=== PATIENT | female | born 1965 | race African-American/Black ===

== ENCOUNTER 2017-01-24 14:00 | Observation (INO) | payer OTHER ==
[~2017-01-24] VITALS: Ht 162.6 cm; Wt 55.7 kg
[2017-01-24 15:10] LABS: EOSINOPHIL (%) 4.1 % (0-5); EOSINOPHIL COUNT 0.2 K/uL (0-0.3); HEMATOCRIT 38.5 % (36.0-46.0); IMMATURE GRANULOCYTE (%) 0.2 % (0.0-0.7); INSTRUMENT ABS NEUTROPHIL CT 2.7 K/uL; MCH 31.8 PG (29.0-34.0); MCHC 33.2 G/DL (30.0-36.0); MCV 95.5 FL (83-99); MEAN PLAT.VOLUME 8.4 uM^3 (9.5-12.4); MONOCYTE COUNT 0.5 K/uL (0-0.8); NEUTROPHIL (%) 61.2 % (45-76); NEUTROPHIL COUNT 2.7 K/uL (1.8-6.4); PLATELET COUNT 207 K/uL (156-360); RBC DIS.WIDTH-CV 12.2 % (11.8-14.6); RBC DIS.WIDTH-SD 43.4 % (39-53); RED BLOOD COUNT 4.03 M/uL (3.80-5.20); WHITE BLOOD COUNT 4.4 K/uL (4.1-10.2)
[2017-01-24 15:17] LABS: CHLORIDE 103 mEq/L (99-109); POTASSIUM 4.4 mEq/L (3.7-5.4); SODIUM 139 mEq/L (136-147)
[2017-01-24 15:18] LABS: MAGNESIUM 2.1 mg/dL (1.3-2.7)
[2017-01-24 15:19] LABS: GLUCOSE 173 mg/dL (70-99)
[2017-01-24 15:20] LABS: ANION GAP 8 MEQ/L (2-14)
[2017-01-24 15:21] LABS: TOTAL BILIRUBIN 0.2 mg/dL (0.0-1.0)
[2017-01-24 15:23] LABS: ALKALINE PHOSPHATASE 65 IU/L (3-129); GFR ESTIMATE (CALCULATED) > 59 mL/min/
[2017-01-24 15:24] LABS: UREA NITROGEN (BUN) 10 mg/dL (9-23)
[2017-01-24] MEDS ORDERED: FLOVENT 22120 INHALA IH (20:10)
[2017-01-24] MEDS ORDERED: LEVOCETIRIZINE D5 MG PO (20:11)
[2017-01-24] MEDS ORDERED: CYCLOBENZAPRINE10 MG PO (20:11)
[2017-01-24] MEDS ORDERED: SINGULAIR10 MG PO (20:11)
[2017-01-24] MEDS ORDERED: PAROXETINE HCL20 MG PO (20:12)
[2017-01-24] MEDS ORDERED: ZIPRASIDONE HCL40 MG PO (20:12)
[2017-01-24] MEDS ORDERED: KEPPRA1000 MG PO (20:13)
[2017-01-24] MEDS ORDERED: CARBATROL-ER300 MG PO (20:13)
[2017-01-24] MEDS ORDERED: DIVALPROEX SOD500 MG PO ×3 (20:14→20:15)
[2017-01-24] MEDS ORDERED: CENTRUM SILVER1 EAC3 PO (20:15)
[2017-01-24 21:01] VITALS: BP 156/100
[2017-01-25 00:16] VITALS: BP 147/84
[2017-01-25 03:20] VITALS: BP 148/72
[2017-01-25 05:00] VITALS: BP 148/72
[2017-01-25 07:01] LABS: HEMATOCRIT 35.4 % (36.0-46.0); MCH 31.3 PG (29.0-34.0); MCHC 32.5 G/DL (30.0-36.0); MCV 96.5 FL (83-99); MEAN PLAT.VOLUME 8.9 uM^3 (9.5-12.4); PLATELET COUNT 188 K/uL (156-360); RBC DIS.WIDTH-CV 12.4 % (11.8-14.6); RBC DIS.WIDTH-SD 44.1 % (39-53); RED BLOOD COUNT 3.67 M/uL (3.80-5.20); WHITE BLOOD COUNT 4.2 K/uL (4.1-10.2)
[2017-01-25 07:24] LABS: ANION GAP 7 MEQ/L (2-14); CHLORIDE 106 MEQ/L (99-109); GFR ESTIMATE (CALCULATED) > 59 mL/min/; SAMPLE HEMOLYSIS CHECK 1; SAMPLE ICTERIC CHECK 0; SAMPLE LIPEMIA CHECK 0; SODIUM 140 MEQ/L (136-147); UREA NITROGEN (BUN) 7 mg/dL (9-23)
[2017-01-25 07:26] LABS: GLUCOSE 77 mg/dL (70-99); POTASSIUM 3.9 MEQ/L (3.7-5.4)
[2017-01-25 07:29] VITALS: BP 119/78
[2017-01-25 10:20] LABS: ADD MIUA? NO; BILIRUBIN NEGATIVE; BLOOD NEGATIVE; COLOR YELLOW ((YELLOW)); GLUCOSE (STRIP) NEGATIVE; KETONES NEGATIVE; LEUKOCYTES NEGATIVE; NITRITE NEGATIVE; PROTEIN (STRIP) NEGATIVE; SPECIFIC GRAVITY 1.009 (1.000-1.030); UROBILINOGEN 0.2 MG/DL (0.2-1.0)
[2017-01-25 10:59] VITALS: BP 146/91
[2017-01-25] MEDS ORDERED: KEPPRA1000 MG PO (11:27)
== END 2017-01-25 15:44 | disposition home or self-care (01) ==
LOC: EME 14:00 → EDOF 19:15 → 5WEST 19:15 → EDOF 19:15 → 5WEST 20:44
PROVIDERS: Emergency Medicine; Hospitalist
DX: G40.909 Epilepsy, unspecified, not intractable, without status epilepticus (principal); I10 Essential (primary) hypertension; J45.909 Unspecified asthma, uncomplicated; F70 Mild intellectual disabilities; Z91.19 Patient's noncompliance with other medical treatment and regimen
CPT/HCPCS: 70450; 71020; 80048; 80053; 80156; 80164; 81003; 83735; 85025; 85027; 93005; 94640; 99281; 99285; G0378; J1644; J7030

== ENCOUNTER 2017-04-30 16:13 | Emergency (ER) | payer OTHER ==
[~2017-04-30] VITALS: Ht 162.6 cm; Wt 57.4 kg
[~2017-04-30 16:13] MED LIST: CARBATROL-ER300 MG PO; CENTRUM SILVER1 EAC3 PO; CYCLOBENZAPRINE10 MG PO; DIVALPROEX SOD500 MG PO; FLOVENT 22120 INHALA IH; KEPPRA1000 MG PO; LEVOCETIRIZINE D5 MG PO; PAROXETINE HCL20 MG PO; SINGULAIR10 MG PO; ZIPRASIDONE HCL40 MG PO
[2017-04-30 16:43] LABS: ADD MIUA? NO; BILIRUBIN NEGATIVE; BLOOD NEGATIVE; COLOR YELLOW ((YELLOW)); GLUCOSE (STRIP) NEGATIVE; KETONES NEGATIVE; LEUKOCYTES NEGATIVE; NITRITE NEGATIVE; PROTEIN (STRIP) NEGATIVE; SPECIFIC GRAVITY 1.014 (1.000-1.030); UCUL ADDED? NO
[2017-04-30 17:07] LABS: HEMATOCRIT 39.1 % (36.0-46.0); MCHC 33.5 G/DL (30.0-36.0); MCV 95.4 FL (83-99); MEAN PLAT.VOLUME 8.8 uM^3 (9.5-12.4); PLATELET COUNT 229 K/uL (156-360); RBC DIS.WIDTH-CV 12.1 % (11.8-14.6); RBC DIS.WIDTH-SD 42.4 % (39-53); WHITE BLOOD COUNT 4.4 K/uL (4.1-10.2)
[2017-04-30 17:20] LABS: CHLORIDE 102 mEq/L (99-109)
[2017-04-30 17:21] LABS: POTASSIUM 3.6 mEq/L (3.7-5.4); SODIUM 139 mEq/L (136-147)
[2017-04-30 17:23] LABS: GLUCOSE 116 mg/dL (70-99)
[2017-04-30 17:24] LABS: ANION GAP 9 MEQ/L (2-14)
[2017-04-30 17:25] LABS: TOTAL BILIRUBIN 0.2 mg/dL (0.0-1.0)
[2017-04-30 17:26] LABS: ALKALINE PHOSPHATASE 66 IU/L (3-129)
[2017-04-30 17:27] LABS: GFR ESTIMATE (CALCULATED) > 59 mL/min/
[2017-04-30 17:28] LABS: UREA NITROGEN (BUN) 14 mg/dL (9-23)
[2017-04-30 18:37] LABS: SAMPLE HEMOLYSIS CHECK 0; SAMPLE ICTERIC CHECK 0; SAMPLE LIPEMIA CHECK 0
[2017-04-30 19:00] VITALS: BP 155/98
== END 2017-04-30 19:01 | disposition home or self-care (01) ==
LOC: EME 16:13
PROVIDERS: Emergency Medicine
DX: G40.909 Epilepsy, unspecified, not intractable, without status epilepticus (principal); J45.909 Unspecified asthma, uncomplicated
CPT/HCPCS: 80053; 80156; 80164; 81003; 85027; 99281; 99284; J1953; J7030; J7050

== ENCOUNTER 2017-09-19 13:41 | Emergency (ER) | payer OTHER ==
[~2017-09-19] VITALS: Ht 162.6 cm; Wt 59.6 kg
[2017-09-19 16:05] LABS: EOSINOPHIL (%) 3.8 % (0-5); EOSINOPHIL COUNT 0.2 K/uL (0-0.3); HEMATOCRIT 36.9 % (36.0-46.0); IMMATURE GRANULOCYTE (%) 0.2 % (0.0-0.7); INSTRUMENT ABS NEUTROPHIL CT 2.5 K/uL; LYMPHOCYTE COUNT 1.4 K/uL (1.0-2.8); MCH 31.9 PG (29.0-34.0); MCHC 33.1 G/DL (30.0-36.0); MCV 96.6 FL (83-99); MEAN PLAT.VOLUME 8.3 uM^3 (9.5-12.4); MONOCYTE (%) 8.2 % (3-12); MONOCYTE COUNT 0.4 K/uL (0-0.8); NEUTROPHIL (%) 56.4 % (45-76); NEUTROPHIL COUNT 2.5 K/uL (1.8-6.4); PLATELET COUNT 224 K/uL (156-360); RBC DIS.WIDTH-CV 12.3 % (11.8-14.6); RBC DIS.WIDTH-SD 43.8 % (39-53); RED BLOOD COUNT 3.82 M/uL (3.80-5.20); WHITE BLOOD COUNT 4.5 K/uL (4.1-10.2)
[2017-09-19 16:30] LABS: ALKALINE PHOSPHATASE 61 IU/L (3-129); ANION GAP 8 MEQ/L (2-14); CHLORIDE 103 MEQ/L (99-109); GFR ESTIMATE (CALCULATED) > 59 mL/min/; GLUCOSE 115 mg/dL (70-99); POTASSIUM 3.7 MEQ/L (3.7-5.4); SAMPLE HEMOLYSIS CHECK 0; SAMPLE ICTERIC CHECK 0; SAMPLE LIPEMIA CHECK 0; SODIUM 139 MEQ/L (136-147); TOTAL BILIRUBIN 0.3 MG/DL (0.0-1.0); UREA NITROGEN (BUN) 10 mg/dL (9-23)
[2017-09-19 18:48] VITALS: BP 149/93
== END 2017-09-19 18:55 | disposition home or self-care (01) ==
LOC: EME 13:41
PROVIDERS: Emergency Medicine
DX: G40.409 Other generalized epilepsy and epileptic syndromes, not intractable, without status epilepticus (principal); J45.909 Unspecified asthma, uncomplicated; F79 Unspecified intellectual disabilities; F32.9 Major depressive disorder, single episode, unspecified; Z87.820 Personal history of traumatic brain injury; Z88.8 Allergy status to other drugs, medicaments and biological substances
CPT/HCPCS: 80053; 80156; 80164; 85025; 99281; 99285

== ENCOUNTER 2017-12-03 16:14 | Emergency (ER) | payer OTHER ==
[~2017-12-03] VITALS: Ht 162.6 cm; Wt 59.2 kg
[2017-12-03 16:33] LABS: HEMATOCRIT 36.9 % (36.0-46.0); HEMOGLOBIN 12.7 G/DL (11.9-15.5); MCHC 34.4 G/DL (30.0-36.0); MCV 92.9 FL (83-99); PLATELET COUNT 205 K/uL (156-360); RBC DIS.WIDTH-CV 11.9 % (11.8-14.6); RBC DIS.WIDTH-SD 41.1 % (39-53); RED BLOOD COUNT 3.97 M/uL (3.80-5.20)
[2017-12-03 16:41] LABS: CHLORIDE 100 mEq/L (99-109); POTASSIUM 3.6 mEq/L (3.7-5.4); SODIUM 135 mEq/L (136-147)
[2017-12-03 16:42] LABS: GLUCOSE 144 mg/dL (70-99)
[2017-12-03 16:46] LABS: CREATININE 0.9 mg/dL (0.6-1.3); GFR ESTIMATE (CALCULATED) > 59 mL/min/
[2017-12-03 16:47] LABS: UREA NITROGEN (BUN) 19 mg/dL (9-23)
[2017-12-03 16:53] LABS: TROP-I INTERPRETATION NEGATIVE; TROPONIN-I < 0.01 ng/mL (0.0-0.30)
[2017-12-03 18:04] VITALS: BP 160/101
== END 2017-12-03 18:11 | disposition home or self-care (01) ==
LOC: EME 16:14
PROVIDERS: Emergency Medicine
DX: Z71.1 Person with feared health complaint in whom no diagnosis is made (principal); F32.9 Major depressive disorder, single episode, unspecified; J45.909 Unspecified asthma, uncomplicated; Z88.8 Allergy status to other drugs, medicaments and biological substances
CPT/HCPCS: 80048; 84484; 85027; 93005; 99281; 99284

== ENCOUNTER 2017-12-04 10:56 | Emergency (ER) | payer OTHER ==
[~2017-12-04] VITALS: Ht 162.6 cm; Wt 56.9 kg
[2017-12-04 14:18] VITALS: BP 145/87
== END 2017-12-04 14:22 | disposition home or self-care (01) ==
LOC: EME 10:56
DX: I10 Essential (primary) hypertension (principal); R73.9 Hyperglycemia, unspecified; J45.909 Unspecified asthma, uncomplicated
CPT/HCPCS: 82948; 99281; 99284

== ENCOUNTER 2018-02-03 14:26 | Emergency (ER) | payer OTHER ==
[~2018-02-03] VITALS: Ht 162.6 cm; Wt 59.3 kg
[2018-02-03 15:29] LABS: APPEARANCE CLEAR ((CLEAR)); BILIRUBIN NEGATIVE; BLOOD MODERATE; COLOR STRAW ((YELLOW)); GLUCOSE (STRIP) NEGATIVE; KETONES NEGATIVE; LEUKOCYTES NEGATIVE; NITRITE NEGATIVE; PROTEIN (STRIP) NEGATIVE; UROBILINOGEN 0.2 MG/DL (0.2-1.0)
[2018-02-03 15:34] LABS: BACTERIA NONE SEEN /HPF; EPITHELIAL CELLS RARE /HPF; MUCUS NONE SEEN /LPF; RED BLOOD CELLS 0-5 /HPF (0-5); UCUL ADDED? NO; WHITE BLOOD CELLS 0-5 /HPF (0-5)
[2018-02-03 15:44] LABS: HEMATOCRIT 39.6 % (36.0-46.0); HEMOGLOBIN 13.8 G/DL (11.9-15.5); MCH 31.9 PG (29.0-34.0); MCHC 34.8 G/DL (30.0-36.0); PLATELET COUNT 187 K/uL (156-360); RBC DIS.WIDTH-CV 11.9 % (11.8-14.6); RBC DIS.WIDTH-SD 40.4 % (39-53); RED BLOOD COUNT 4.32 M/uL (3.80-5.20); WHITE BLOOD COUNT 4.9 K/uL (4.1-10.2)
[2018-02-03 15:47] LABS: MCV 91.7 FL (83-99)
[2018-02-03 15:53] LABS: CHLORIDE 100 mEq/L (99-109); POTASSIUM 3.9 mEq/L (3.7-5.4); SODIUM 138 mEq/L (136-147)
[2018-02-03 15:55] LABS: GLUCOSE 98 mg/dL (70-99)
[2018-02-03 15:59] LABS: CREATININE 0.8 mg/dL (0.6-1.3); GFR ESTIMATE (CALCULATED) > 59 mL/min/
[2018-02-03 16:00] LABS: UREA NITROGEN (BUN) 8 mg/dL (9-23)
[2018-02-03 16:21] LABS: CARBAMAZEPINE (TEGRETOL) 9.7 MCG/ML (4.0-12.0); VALPROIC ACID (DEPAKOTE) 135.9 MCG/ML (50-100)
[2018-02-03 17:51] VITALS: BP 145/93
[2018-02-04] MEDS ORDERED: KLONOPIN0.5 M1 PO (14:21)
== END 2018-02-03 17:55 | disposition home or self-care (01) ==
LOC: EME 14:26
DX: R53.83 Other fatigue (principal); R53.81 Other malaise; R42 Dizziness and giddiness; R56.9 Unspecified convulsions; J45.909 Unspecified asthma, uncomplicated; F32.9 Major depressive disorder, single episode, unspecified; F79 Unspecified intellectual disabilities; Z79.51 Long term (current) use of inhaled steroids; Z87.820 Personal history of traumatic brain injury
CPT/HCPCS: 70450; 71046; 80048; 80156; 80164; 81003; 85027; 99281; 99284

== ENCOUNTER 2018-02-04 11:39 | Emergency (ER) | payer OTHER ==
[~2018-02-04] VITALS: Ht 162.6 cm; Wt 61.4 kg
[2018-02-04 12:09] LABS: BASOPHIL (%) 0.7 % (0-1); EOSINOPHIL (%) 3.7 % (0-5); EOSINOPHIL COUNT 0.2 K/uL (0-0.3); HEMATOCRIT 38.6 % (36.0-46.0); HEMOGLOBIN 13.4 G/DL (11.9-15.5); IMMATURE GRANULOCYTE (%) 0.2 % (0.0-0.7); LYMPHOCYTE (%) 31.3 % (15-42); LYMPHOCYTE COUNT 1.3 K/uL (1.0-2.8); MCH 31.9 PG (29.0-34.0); MCHC 34.7 G/DL (30.0-36.0); MCV 91.9 FL (83-99); MONOCYTE (%) 8.1 % (3-12); MONOCYTE COUNT 0.3 K/uL (0-0.8); NEUTROPHIL COUNT 2.3 K/uL (1.8-6.4); PLATELET COUNT 173 K/uL (156-360); RBC DIS.WIDTH-SD 40.8 % (39-53); WHITE BLOOD COUNT 4.1 K/uL (4.1-10.2)
[2018-02-04 12:22] LABS: CHLORIDE 101 mEq/L (99-109); SODIUM 141 mEq/L (136-147)
[2018-02-04 12:23] LABS: GLUCOSE 96 mg/dL (70-99)
[2018-02-04 12:27] LABS: CREATININE 0.7 mg/dL (0.6-1.3); GFR ESTIMATE (CALCULATED) > 59 mL/min/
[2018-02-04 12:28] LABS: UREA NITROGEN (BUN) 9 mg/dL (9-23)
[2018-02-04 13:06] LABS: VALPROIC ACID (DEPAKOTE) 97.2 MCG/ML (50-100)
[2018-02-04] MEDS ORDERED: KLONOPIN0.5 M1 PO (14:21)
[2018-02-04 14:48] VITALS: BP 151/105
== END 2018-02-04 14:35 | disposition home or self-care (01) ==
LOC: EME 11:39
PROVIDERS: Emergency Medicine
DX: G40.909 Epilepsy, unspecified, not intractable, without status epilepticus (principal); F79 Unspecified intellectual disabilities; Z87.820 Personal history of traumatic brain injury; F32.9 Major depressive disorder, single episode, unspecified; J45.909 Unspecified asthma, uncomplicated
CPT/HCPCS: 80048; 80164; 85025; 99281; 99285